=== PATIENT | male | born 1965 | race Two or more races ===

== ENCOUNTER 2021-08-15 15:25 | Emergency (ER) | payer OTHER ==
[2021-08-15] MEDS ORDERED: Sodium Chloride 0.9% 10 ML Syringe FLUSH PRN (15:53)
[2021-08-15] MEDS ORDERED: Sodium Chloride 0.9% 2.5 ML Syringe FLUSH PRN (15:53)
[2021-08-15] MEDS ORDERED: Sodium Chloride 0.9% 1,000 ML IV ONE (15:53)
[2021-08-15] MEDS ORDERED: Ketorolac 30 MG/ML SDV IVPUSH ONE (15:54)
[2021-08-15 17:04] LABS: BLOOD UREA NITROGEN,BUN 20 mg/dL (7.0-18.0); CARBON DIOXIDE,CO2 20.3 mmol/L (21.0-32.0); CHLORIDE,CL 98 mmol/L (98-107); GLUCOSE RANDOM 140 mg/dL (74-106); POTASSIUM,K 4.4 mmol/L (3.5-5.1); SODIUM,NA 136 mmol/L (136-148)
[2021-08-15] MEDS ORDERED: Ciprofloxacin 500 MG Tab PO ONE (18:05)
== END 2021-08-15 19:47 | disposition home or self-care (01) ==
LOC: MW.ED 15:25
DX: N41.9 Inflammatory disease of prostate, unspecified (principal)
CPT/HCPCS: 36415; 74176; 80053; 81003; 85025; 96374; 99284; A9270; J1885; J7030